=== PATIENT | female | born 1980 | race Caucasian/White ===

== ENCOUNTER 2024-06-20 08:30 | Emergency (ER) | payer MEDICAID ==
[~2024-06-20] VITALS: Ht 162.6 cm; Wt 91.2 kg
[2024-06-20 08:47] VITALS: BP_SYST 129; PULSE 80; RESP 16; TEMP 97.6; O2SAT 100
[2024-06-20 09:36] LABS: BASOPHILS # (AUTO) 0.1 K/uL (0.0-0.2); EOSINOPHILS # (AUTO) 0.1 K/uL (0.0-0.4); EOSINOPHILS % (AUTO) 1.1 % (0.0-4.0); HEMATOCRIT 30.5 % (36-48); HEMOGLOBIN 9.1 g/dL (12.0-16.0); LYMPHOCYTES # (AUTO) 1.4 K/uL (1.0-5.5); LYMPHOCYTES % (AUTO) 28.1 % (20.5-51.5); MEAN CORPUSCULAR HEMOGLOBIN 19 pg (27-31); MEAN CORPUSCULAR HGB CONC 30 % (32-36); MEAN CORPUSCULAR VOLUME 65 fL (79.0-98.0); MONOCYTES # (AUTO) 0.4 K/uL (0.0-1.0); MONOCYTES % (AUTO) 7.7 % (1.7-9.3); NEUTROPHILS # (AUTO) 3.2 K/uL (1.8-7.7); NEUTROPHILS % (AUTO) 62.1 % (40.0-70.0); PLATELET COUNT (AUTO) 213 K/uL (130-430); RED BLOOD CELL COUNT(AUTO) 4.69 MIL/uL (4.2-6.2); RED CELL DISTRIBUTION WIDTH 29.3 % (9.0-15.0); WHITE BLOOD COUNT (AUTO) 5.1 K/uL (4.8-10.8)
[2024-06-20] MEDS: MORPHINE 4 MG INJ. 4 MG/ML VIAL IVP ONE (09:44)
[2024-06-20] MEDS: ONDANSETRON HCL 4 MG/2 ML VIAL IVP ONE (09:45)
[2024-06-20 09:53] LABS: BILIRUBIN,URINE NEGATIVE (NEGATIVE); BLOOD, URINE NEGATIVE (NEGATIVE); COLOR,URINE YELLOW (YELLOW); GLUCOSE,URINE NEGATIVE (NEGATIVE); KETONES,URINE NEGATIVE (NEGATIVE); LEUKOCYTE ESTERASE ,URINE NEGATIVE (NEGATIVE); NITRITE, URINE NEGATIVE (NEGATIVE); PROTEIN URINE NEGATIVE (NEGATIVE); UROBILINOGEN,URINE 0.2 (0.2-1.0)
[2024-06-20 10:00] LABS: ANION GAP 8 (5-15); CALCIUM 8.7 mg/dL (8.4-11.0); CARBON DIOXIDE 28 mmol/L (23-29); CHLORIDE 106 mmol/L (98-107); CREATININE 0.65 mg/dL (0.55-1.30); GFR AFRICAN AMERICAN 128 mL/min (>90); GFR NON AFRICAN-AMERICAN 106 mL/min (>90); GLUCOSE 85 mg/dL (74-106); POTASSIUM 3.6 mmol/L (3.5-5.1); SODIUM SERUM 142 mmol/L (136-145); UREA NITROGEN, BLOOD 11 mg/dL (8-21)
[2024-06-20 10:32] LABS: CLARITY/URINE HAZY (CLEAR)
[2024-06-20 10:35] LABS: BACTERIA,URINE FEW /HPF (None Seen); MUCUS,URINE 2+ /LPF (None Seen); RBC,URINE 0-3 /HPF (0-3)
[2024-06-20] MEDS ORDERED: TRAM50TA2 PO (10:53)
[2024-06-20] MEDS ORDERED: ACET-2634 PO (10:53)
[2024-06-20 11:38] LABS: ANISOCYTOSIS 3+; HYPOCHROMASIA 2+; OVALOCYTES FEW
[2024-06-20 12:04] VITALS: BP_SYST 129; PULSE 80; RESP 16; TEMP 97.6; O2SAT 100
== END 2024-06-20 12:02 | disposition home or self-care (01) ==
LOC: SED 08:30
DX: R07.89 Other chest pain (principal); D64.9 Anemia, unspecified
CPT/HCPCS: 36415; 71045; 80048; 81000; 81001; 81015; 83880; 84484; 85025; 93005; 96374; 96375; 99285